=== PATIENT | female | born 2000 | race Caucasian/White ===

== ENCOUNTER 2024-03-09 17:59 | Emergency (ER) | payer OTHER, SELFPAY ==
--- NOTE | ~2024-03-09 | US_ITS ---
EXAMINATION: US ABDOMEN LIMITED CLINICAL INFORMATION: Pain right upper quadrant. COMPARISON: None available. TECHNIQUE: Real-time imaging of the right upper quadrant abdominal viscera. FINDINGS: PANCREAS: Visualized portions of the pancreas are unremarkable. Portions are obscured by overlying bowel gas. LIVER: Normal. The liver is normal in size. The liver contour is normal. Parenchymal echogenicity is normal. No focal hepatic lesion. There is no intrahepatic biliary duct dilatation seen. GALLBLADDER: gallbladder is contracted without wall thickening or pericholecystic fluid. Sonographic Bahena sign is positive. Portions of the pancreas are unremarkable. Portions are scattered by overlying bowel gas. COMMON BILE DUCT: Normal in caliber measuring 0.3 cm in diameter. RIGHT KIDNEY: Normal. No hydronephrosis. No renal calculi or focal parenchymal lesions. The kidney measures 10.0 cm in maximum dimension. FREE FLUID: None. US/US abdomen limited IMPRESSION: Gallbladder is contracted without wall thickening or pericholecystic fluid to suggest acute cholecystitis. Sonographic Bahena sign is however positive.
[2024-03-09 18:13] VITALS: BP 149/66; PULSE 73; RESP 18; TEMP 36.6; O2SAT 100; BMI 25.2
--- NOTE | 2024-03-09 18:13 | ED_ITS ---
HPI - General Adult General Chief complaint: Abdominal Pain Stated complaint: Gallbldder issue - ref by UC Time Seen by Provider: 03/10/24 03:17 Source: patient and family (Mother) Mode of arrival: ambulatory Limitations: no limitations History of Present Illness ED Provider: Dr. Du Way HPI narrative: 24-year-old female with a history of asthma and lactose intolerance who presents emergency department for evaluation of right upper quadrant pain, burping x1 month, sore throat with low-grade fever x2 days. The patient states that over the past month she has been having intermittent pain in her right upper quadrant area. She states that the pain comes on 30 minutes to several hours after she eats. She describes the pain is a stabbing pain and it does radiate to her epigastric area. It does not radiate to her back. She states that she seems to have a significant amount of burping as well which is new for her. She takes Tums which gives her some relief. She is associated nausea with no vomiting. She has had episodes of diarrhea as well. She states that over the past 2 days she has also had a sore throat with a rash on her left arm. Care clinic today and had a negative rapid strep test. She did have significant right upper quadrant tenderness and they referred her to the emergency room and to rule out biliary colic verses cholecystitis. Related Data Previous Rx's ?Medication ?Instructions ?Recorded aluminum hydrox-magnesium carb 254 10 ml PO QID PRN dyspepsia #355 mL 03/10/24 mg-237.5 mg/5 mL oral suspension (Gaviscon Extra Strength) omeprazole 20 mg capsule,delayed 20 mg PO DAILY 30 days #30 caps 03/10/24 release Allergies Allergy/AdvReac Type Severity Reaction Status Date / Time No Known Allergies Allergy Verified 03/09/24 18:15 Review of Systems 2 Review of Systems: Yes all other systems are reviewed and are negative [facility] Past Medical History [facility] Narrative: Past medical history: Asthma, lactose intolerance. Surgical history: None. Social history: She denies tobacco and alcohol use. 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 It Social History Social History Advance Directives: No Advance Directives Information Provided: No Do you have a plan to hurt others: No Plan Physical Exam ED Vital Signs: Vital Signs - 24 hr 03/09/24 18:13 03/10/24 00:19 Temperature 97.9 F 98.1 F Pulse Rate 73 70 Respiratory Rate 18 18 Blood Pressure 149/66 H 124/70 Pulse Oximetry 100 100 Oxygen Delivery Method Room Air Room Air BMI result Body Mass Index 25.2 Vital signs were normal except for an initial blood pressure of 149/66, repeat blood pressure without treatment to 124/70. Exam: General: Awake, alert in no distress Head: Normocephalic, atraumatic EENT: PERRL, Lids normal, sclera normal, conjunctiva normal, nose normal , ears normal, throat without erythema or exudates Neck: Supple, no adenopathy Lung: breath sounds symmetric, no wheezing, rales or rhonchi Chest: symmetric movement, nontender Heart: regular rate and rhythm, normal S1, S2 no murmurs or rubs Abdomen: soft, moderate right upper quadrant tenderness with a negative Bahena sign, mild to moderate epigastric tenderness, normoactive bowel sounds, no rebound Back: no vertebral tenderness, no CVAT Extremities: no deformities, moves all extremities symmetrically Neuro: Awake, alert, oriented, normal speech Psych: Pleasant, cooperative Course Course Course Narrative: RME- 24 year old female presents for evaluation of RUQ abdominal pain. Symptoms are worse after eating and worse with laying down. Plan for labs, US abdomen to evaluate gallbladder. Medical Decision Making Medical Decision Making [facility] Narrative: 24-year-old female with a history of asthma and lactose intolerance who presents emergency department for evaluation of right upper quadrant pain, burping x1 month, sore throat with low-grade fever x2 days. Patient seen you had an urgent care clinic and was noted to have right upper quadrant tenderness, is a concerned that she may have acute cholecystitis she was sent to the emergency department for evaluation. At the urgent care clinic she had a negative rapid strep test. Patient's vital signs were unremarkable. Physical examination did reveal right upper quadrant and mid epigastric tenderness otherwise was unremarkable. Differential diagnosis: ?Includes but is not limited to biliary disease, cholecystitis, biliary colic, gastritis, esophagitis, GERD Following evaluation was ordered: CBC, CMP, lipase, urinalysis, quantitative beta-hCG, ultrasound abdomen limited to right upper quadrant Course: My interpretation patient's laboratory evaluation is as follows: CBC was normal. CMP was normal. Lipase was normal. Quantitative beta-hCG was negative. Negative workup is reassuring suggesting that she does not have acute cholecystitis at this time. I did discuss the patient's negative workup. Patient's right upper quadrant ultrasound was limited since she had a contracted gallbladder therefore I did give the patient outpatient radiology order slip to schedule a fasting for at least 8-12 hour gallbladder study to evaluate for possible gallstones. I also will treat the patient for possible gastritis with Prilosec 20 mg once a day for 1 month and extra-strength Gaviscon 4 times a day as needed for epigastric/abdominal pain. The patient is moving to [place] and she will need to get a consumer affairs specialist and possibly surgeon to help her further evaluate her pain. She was given printed and verbal instructions and discharged home Admission/Observation Consideration of admission/observation: Escalation of care including admission/observation considered Lab Data MDM Lab Attestation statement: I reviewed the patient's lab results. 03/09/24 20:28 03/09/24 20:28 Labs: Lab Results 03/09/24 Range/Units 20:28 WBC 7.2 (4.8-10.8) X10*3/uL RBC 4.44 (4.20-5.50) X10*6/uL Hgb 12.9 (12.0-16.0) g/dl Hct 39.4 (37.0-47.0) % MCV 88.7 (80.0-98.0) fL MCH 29.1 (27.0-33.0) pg MCHC 32.7 (31.0-35.0) g/dl RDW 12.1 (11.0-16.0) % Plt Count 239 (160-400) X10*3/uL MPV 9.0 L (9.4-12.3) fL Immature Gran % (Auto) 0.3 (0.0-0.4) % Neut % (Auto) 47.4 (45-73) % Lymph % (Auto) 41.1 H (20-40) % [place]ade % (Auto) 6.9 (2-11) % Eos % (Auto) 3.9 (0-4) % Baso % (Auto) 0.4 (0-2) % Lymph # (Auto) 3.0 (1.2-4.9) X10*3/uL [place] # (Auto) 0.5 (0.1-1.2) X10*3/uL Eos # (Auto) 0.3 (0.0-0.4) X10*3/uL Baso # (Auto) 0.0 (0.0-0.2) X10*3/uL Abs Immat Gran (auto) 0.02 (0.00-0.03) X10*3/uL Absolute Neuts (auto) 3.4 (2.0-8.3) x10*3/uL Absolute Nucleated RBC 0.000 (0.0-0.012) X10*3/uL Nucleated RBC % (auto) 0.0 (0.0-0.2) /100WBC Sodium 141 (135-145) mmol/L Potassium 3.6 (3.3-5.1) mmol/L Chloride 108 (96-108) mmol/L Carbon Dioxide 23 (22-29) mmol/L Anion Gap 14 (12-20) BUN 9 (9-16) mg/dL Creatinine 0.76 (0.5-1.4) mg/dL Estim Creat Clear Calc 108.6 Estimated GFR > 60 Random Glucose 86 (60-115) mg/dL Calcium 9.4 (8.4-10.2) mg/dL Total Bilirubin 0.1 (0.0-1.0) mg/dL AST 19 (5-31) U/L ALT 12 (0-31) U/L Alkaline Phosphatase 68 (39-117) U/L Total Protein 7.7 (6.5-8.0) g/dL Albumin 4.7 (3.5-5.0) g/dL Lipase 26 (8-78) U/L Beta HCG, Quant < 2 mIU/mL Urine Color Yellow Urine Appearance Clear Urine pH 6.5 (5.0-9.0) Ur Specific [place] 1.020 (1.005-1.025) Urine Protein Negative (Neg-Trace) mg/dL Urine Glucose (UA) Negative (Negative) mg/dL Urine Ketones Negative (Negative) mg/dL Urine Blood Negative (Negative) Urine Nitrite Negative (Negative) Ur Leukocyte Esterase Trace H (Negative) Urine RBC 0-2 (0-2) /HPF Urine WBC 0-5 (0-5) /HPF Ur Squamous Epith Cells 3-5 (0-2) /HPF Urine Bacteria 1+ (None Seen) Hyaline Casts 0-2 (0-2) /LPF Radiology Impression Discussion of test interpretation with radiology: I have reviewed the radiologist's reading. Radiologist Impression: US abdomen limited IMPRESSION: Gallbladder is contracted without wall thickening or pericholecystic fluid to suggest acute cholecystitis. Sonographic Bahena sign is however positive. Dictated By: Alycia Gusman MD Independent Historian Clinical information obtained from an independent historian. History obtained from or confirmed by: Parent Prescription Management I considered prescription management with: Other (Potassium pump inhibitor, antacid) Discharge Plan Discharge Clinical Impression: Abdominal pain Patient Disposition: Home, Self-Care Instructions: Gastritis (ED), Biliary Colic (ED) Additional Instructions: Your blood work included a CBC, comprehensive metabolic panel and lipase. These tests were all normal which is reassuring. Your gallbladder ultrasound revealed a contracted gallbladder with no evidence of inflammation of your gallbladder or gallstones. Your normal blood work and unremarkable gallbladder suggests that you do not have inflammation of your gallbladder at this time however when your gallbladder is contracted we can miss stones in the gallbladder. I am sending you home with an outpatient radiology slit. Please call the radiology department to schedule an outpatient right upper quadrant ultrasound to evaluate your gallbladder while it is full. You will need to schedule the test for the morning in you will need to fast for at least 8-12 hours prior to getting your gallbladder study. I am going to treat you for possible inflammation of your stomach (gastritis) Take Prilosec (omeprazole) 20 mg pills, 1 pill once a day for 1 month. ?This medication shuts off your acid production and lets the inflammation in your stomach and esophagus heal. Take extra-strength Gaviscon 10 mL (2 tsp) 4 times a day as needed for abdominal pain. Follow-up with your doctor in 2 days. Please return to the emergency department if your symptoms get worse or if you develop any symptoms that are concerning to you. Prescriptions: New Gaviscon Extra Strength 254-237.5 mg/5 mL suspension 10 ml PO QID PRN (Reason: dyspepsia) Qty: 355 0RF omeprazole 20 mg capsule,delayed release(DR/EC) 20 mg PO DAILY 30 Days Qty: 30 0RF Print Language: Icelandic
[2024-03-09 20:34] LABS: MANUAL DIFF FLAG NO
[2024-03-09 20:38] LABS: Basophils Percent Auto 0.4 % (0-2); Eosinophils Absolute Auto 0.3 X10*3/uL (0.0-0.4); Eosinophils Percent Auto 3.9 % (0-4); Hematocrit 39.4 % (37.0-47.0); Hemoglobin 12.9 g/dl (12.0-16.0); Imm Gran Abs Auto 0.02 X10*3/uL (0.00-0.03); Imm Gran Pct Auto 0.3 % (0.0-0.4); Lymphocytes Percent Auto 41.1 % (20-40); Mean Corpuscular HGB Conc 32.7 g/dl (31.0-35.0); Mean Corpuscular Hemoglobin 29.1 pg (27.0-33.0); Mean Corpuscular Volume 88.7 fL (80.0-98.0); Monocytes Absolute Auto 0.5 X10*3/uL (0.1-1.2); Monocytes Percent Auto 6.9 % (2-11); Neutrophils Absolute Auto 3.4 x10*3/uL (2.0-8.3); Neutrophils Percent Auto 47.4 % (45-73); Platelet Count 239 X10*3/uL (160-400); Red Blood Count 4.44 X10*6/uL (4.20-5.50); Red Cell Distribution Width 12.1 % (11.0-16.0); White Blood Count 7.2 X10*3/uL (4.8-10.8)
[2024-03-09 20:39] LABS: Appearance Urine Clear; Color Urine Yellow; Glucose Urine UA Negative (Negative); Leukocyte Esterase Urine Trace (Negative); Nitrite Urine Negative (Negative); PH 6.5 (5.0-9.0); UMIC TRIGGER UACC YES; Urine Blood Negative (Negative); Urine Ketones Negative (Negative); Urine Protein Negative (Neg-Trace)
[2024-03-09 20:44] LABS: Bacteria Urine 1+ (None Seen); Hyaline Casts Urine 0-2 /LPF (0-2); RBC Urine 0-2 /HPF (0-2); WBC Urine 0-5 /HPF (0-5)
[2024-03-09 20:58] LABS: Alanine Aminotransferase 12 U/L (0-31); Albumin Level 4.7 g/dL (3.5-5.0); Alkaline Phosphatase 68 U/L (39-117); Anion Gap 14 (12-20); Aspartate Amino Transferase 19 U/L (5-31); Bilirubin Total 0.1 mg/dL (0.0-1.0); Blood Urea Nitrogen 9 mg/dL (9-16); Calcium 9.4 mg/dL (8.4-10.2); Carbon Dioxide 23 mmol/L (22-29); Chloride 108 mmol/L (96-108); Creatinine Clr Calc Pharmacy 108.6; Estimated Glomerular Filt Rate > 60; Glucose Random 86 mg/dL (60-115); Lipase 26 U/L (8-78); Potassium 3.6 mmol/L (3.3-5.1); Sodium 141 mmol/L (135-145); Total Protein 7.7 g/dL (6.5-8.0)
[2024-03-09 21:13] LABS: HCG Quantitative < 2 mIU/mL
[2024-03-10 00:19] VITALS: BP 124/70; PULSE 70; RESP 18; TEMP 36.7; O2SAT 100
--- OUTSIDE RECORDS SUMMARY | 2024-03-10 00:33 | XMS_ITS | Continuity of Care Document ---
Author Organization [facility] Address [address] [place] [address]- Care Team Providers Care Pediatric Acute Care Unit Nurse Name Role Phone Not on Staff, PCP Primary Care Physician Unavail able Encounter [facility] Date(s): 08/02/23 - 09/01/23 [facility] [address] [place] [address] [address] [place] [address]- Allergies, Adverse Reactions, Alerts No Known Allergies Medications acetaminophen 325 mg oral capsule 2 capsule = 650 mg, By Mouth, Every 6 hours, not to exceed 4000 mg/day, # 40 capsule, 0 Refills, Maintenance, 08/18/20 23:58:00 EST, Capsule, [id number], 168, cm, 08/18/20 21:46:00EST, Height, 68.9, kg, 08/18/20 21:46:00 EST, Dry Weight Start Date: 08/18/20 Status: Ordered BuPROpion By Mouth, 0 Refills, Maintenance, 07/26/21 14:26:00 EDT, Partial fill upon patient request if the prescription is for a schedule II opioid drug. Start Date: 07/26/21 Status: Ordered escitalopram 20 mg oral tablet TAKE 1 TABLET BY MOUTH EVERY DAY Start Date: 04/04/21 Status: Ordered ibuprofen 600 mg oral tablet 600 mg, 1, tablet, By Mouth, Every 6 hours, not to exceed 3200 mg/day with food or milk, # 20 tablet, Refills 0, Tot. Refills 0, Maintenance, 08/18/20 23:58:00 EST, Route to Pharmacy Electronically, [id number], 168, cm, 08/18/20 21:46:... Start Date: 08/18/20 Status: Ordered topiramate 50 mg oral tablet See Instructions, PRN Headache, 1/2 to 1 tablet By Mouth Daily at bedtime, # 30 capsule, 3 Refills,Maintenance, 08/03/23 8:04:00 EDT, [facility] #[id number], 168, cm, 05/11/22 15:32:00 EDT, Height Start Date: 08/03/23 Status: Ordered Social History Social History Type Response Smoking Status Never (less than 100 in lifetime) entered on: 08/18/20 Sex Patient Care team information Care Team Personnel Name: Not on Staff, PCP Position: [facility] Physician (General Medicine) Member Role: PCP Care Team Related Persons Name: LEO ELKINS Address: [address] [place], [place] [address]
--- OUTSIDE RECORDS SUMMARY | 2024-03-10 00:33 | XMS_ITS | Continuity of Care Document ---
Author Organization [facility] Address [address] [place] [address]- Care Team Providers Care Protozoology Teacher Name Role Phone Nimo Jackson Primary Care Physician [place] [facility] [place] [id number] Date(s): 05/10/21 - 05/17/21 [facility] [address] [place] [id number] Attending Physician: Ventura VALERIO, Luis Hoover Allergies, Adverse Reactions, Alerts Substance Reaction Severity Status NKA Active Medications acetaminophen 325 mg oral capsule 2 capsule = 650 mg, By Mouth, Every 6 hours, not to exceed 4000 mg/day, # 40 capsule, 0 Refills, Maintenance, 08/18/20 23:58:00 EST, Capsule, [facility], 168, cm, 08/18/20 21:46:00EST, Height, 68.9, kg, 08/18/20 21:46:00 EST, Dry Weight Start Date: 08/18/20 Status: Ordered cyclobenzaprine 5 mg oral tablet 1 tablet = 5 mg, By Mouth, Daily at bedtime, for 30 days, may increase to 2 po qhs if needed., # 30tablet, 1 Refills, Acute 07/09/21 14:41:00 EDT, 05/10/21 14:41:00 EDT, [facility] #[id number],Partial fill upon patient request if the prescripti... Start Date: 05/10/21 Stop Date: 07/09/21 Status: Ordered escitalopram 20 mg oral tablet [...] 08/18/20 21:46:... Start Date: 08/18/20 Status: Ordered Vital Signs Most recent to oldest [Reference Range]: 1 Height 168 cm (05/10/21 1:57 PM) Weight 80.4 kg (05/10/21 1:57 PM) Oxygen Saturation [94-100 %] 95 % (05/10/21 1:57 PM) Pulse Rate [55-90 bpm] 110 bpm *H* (05/10/21 1:57 PM) Body Mass Index [18.5-24.99] 28.49 *H* (05/10/21 1:57 PM) Blood Pressure [90-138/55-84 mm Hg] 127/ 65mm Hg (05/10/21 1:57 PM) Temperature [96.8-100.4 DegF] 96.9 DegF (05/10/21 1:57 PM) Blood pressure sites Arm, left (05/10/21 1:57 PM) Temperature Route Temporal (05/10/21 1:57 PM) Social History Social History Type Response Smoking Status Never (less than 100 in lifetime) entered on: 08/18/20 Sex
--- OUTSIDE RECORDS SUMMARY | 2024-03-10 00:33 | XMS_ITS | Continuity of Care Document ---
Author Organization [facility] Address [address] [place] [id number]- Care Team Providers Care Medical Technologist Blood Bank Name Role Phone Not on Staff, PCP Primary Care Physician Unavail able [place] [facility] [place] 03[place]21 [facility] [address] [place] [id number]- Allergies, Adverse Reactions, Alerts Substance Reaction Severity Status NKA Active Medications acetaminophen 325 mg oral capsule 2 capsule = 650 mg, By Mouth, Every 6 hours, not to exceed 4000 mg/day, # 40 capsule, 0 Refills, Maintenance, 08/18/20 23:58:00 EST, Capsule, [facility], 168, cm, 08/18/20 21:46:00EST, Height, 68.9, kg, 08/18/20 21:46:00 EST, Dry Weight Start Date: 08/18/20 Status: Ordered amitriptyline 10 mg oral tablet 10 mg, 1, tablet, By Mouth, Daily at bedtime, # 30 tablet, Refills 0, Tot. Refills 0, Maintenance, 02/24/21 14:58:00 EDT, Route to Pharmacy Electronically, [facility] #[id number], Partial fill upon patient request if the prescription is for a sloane... Start Date: 02/24/21 Stop Date: 03/26/21 Status: Ordered ibuprofen 600 mg oral tablet 600 mg, 1, tablet, By Mouth, Every 6 hours, not to exceed 3200 mg/day with food or milk, # 20 tablet, Refills 0, Tot. Refills 0, Maintenance, 08/18/20 23:58:00 EST, Route to Pharmacy Electronically, [id number], 168, cm, 08/18/20 21:46:... Start Date: 08/18/20 Status: Ordered riboflavin 400 mg oral capsule 1 capsule = 400 mg, By Mouth, Daily, # 30 capsule, 1 Refills, Maintenance, 01/24/21 16:52:00 EDT, Capsule, [id number], Partial fill upon patient request if the prescription is for a schedule II opioid drug., 168, cm, 08/18/20 21:46:00... Start Date: 01/24/21 Stop Date: 03/25/21 Status: Ordered Social History Social History Type Response Smoking Status Never (less than 100 in lifetime) entered on: 08/18/20 Sex
--- OUTSIDE RECORDS SUMMARY | 2024-03-10 00:33 | XMS_ITS | Continuity of Care Document ---
Author Organization [facility] Address [address] [place] [address]- Care Team Providers Care Pump Service Supervisor Name Role Phone Not on Staff, PCP Primary Care Physician Unavail able [place] [facility] [place] 08/03/[address] [id number] Attending Physician: Isela Boyd Admitting Physician: Isela Boyd Referring Physician: AdmtrIsela Allergies, Adverse Reactions, Alerts No Known Allergies [...] 21:46:... Start Date: 08/18/20 Status: Ordered topiramate 25 mg oral capsule 2 capsule = 50 mg, By Mouth, Daily at bedtime, Take 1 at night for one week then 2 capsules at night., # 60 capsule, 4 Refills, Maintenance, 01/31/22 8:42:00 EDT, Capsule, [facility] #[id number], 168, cm, 01/31/22 7:57:00 EDT, Height, 79.8, kg, 0... Start Date: 01/31/22 Status: Ordered topiramate 25 mg oral capsule, extended release 1 capsule = 25 mg, By Mouth, Daily, # 7 capsule, 0 Refills, Maintenance, 01/31/22 8:41:00 EDT, ER Capsule, [facility] #[id number], Partial fill upon patient request if the prescription is for a schedule II opioid drug., 168, cm, 01/31/22 7:57:00... Start Date: 01/31/22 Status: Ordered Social History Social History Type Response Smoking Status Never (less than 100 in lifetime) entered on: 08/18/20 Sex Patient Care team information Personnel Name: Not on Staff, PCP
--- OUTSIDE RECORDS SUMMARY | 2024-03-10 00:33 | XMS_ITS | Continuity of Care Document ---
Author Organization [facility] Address [address] [place] [address] [address] [place] [address]- Care Team Providers Care Hose Tubing Backer Name Role Phone Not on Staff, PCP Primary Care Physician Unavail able [place] [facility] [place] 09/20/22 - 10/20/22 [facility] [address] [place] [id number]- Allergies, Adverse Reactions, Alerts No Known Allergies [...] Status: Ordered topiramate 50 mg oral tablet 1 tablet = 50 mg, By Mouth, Daily at bedtime, # 30 tablet, 5 Refills, Maintenance, 09/20/22 13:29:00 EST, [facility] #[id number], 168, cm, 05/11/22 15:32:00 EDT, Height, 79.8, kg, 04/04/21 11:27:00 EDT, Dry Weight Start Date: 09/20/22 Status: Ordered Social History Social History Type Response Smoking Status Never (less than 100 in lifetime) entered on: 08/18/20 Sex Patient Care team information Care Team Personnel Name: Not on Staff, PCP Position: [facility] Physician (General Medicine) Member Role: PCP Care Team Related Persons Name: LEO ELKINS Address: [address] [place] [address]
--- OUTSIDE RECORDS SUMMARY | 2024-03-10 00:33 | XMS_ITS | Continuity of Care Document ---
Author Organization [facility] Rehabilitation Address Unknown Care Team Providers Care Rn Paralegal Name Role Phone Not on Staff, PCP Primary Care Physician Unavail able [place] [facility] [place] 07/26/21 - 08/02/21 [facility] Attending Physician: Ventura VALERIO, Luis Hoover Referring Physician: Nimo Jackson Allergies, Adverse Reactions, Alerts Substance Reaction Severity [...] oldest [Reference Range]: 1 Height 168 cm (07/26/21 2:24 PM) Weight 80.9 kg (07/26/21 2:24 PM) Oxygen Saturation [94-100 %] 99 % (07/26/21 2:24 PM) Pulse Rate [55-90 bpm] 99 bpm *H* (07/26/21 2:24 PM) Body Mass Index [18.5-24.99] 28.66 *H* (07/26/21 2:24 PM) Blood Pressure [90-138/55-84 mm Hg] 119/ 72mm Hg (07/26/21 2:24 PM) Temperature [96.8-100.4 DegF] 96.6 DegF *L* (07/26/21 2:24 PM) Blood pressure sites Arm, left (07/26/21 2:24 PM) Temperature Route Temporal (07/26/21 2:24 PM) Social History Social History Type Response Smoking Status Never (less than 100 in lifetime) entered on: 08/18/20 Sex
--- OUTSIDE RECORDS SUMMARY | 2024-03-10 00:33 | XMS_ITS | Continuity of Care Document ---
Author Organization [facility] Rehabilitation Address Unknown Care Team Providers Care Executive Assistant To General Counsel Name Role Phone Not on Staff, PCP Primary Care Physician Unavail able [place] [facility] [place]22 - 02/07/22 [facility] Attending Physician: Luis Whitehead MD Allergies, Adverse Reactions, Alerts No Known Allergies Medications acetaminophen 325 mg oral capsule 2 capsule = 650 mg, By Mouth, Every 6 hours, not to exceed 4000 mg/day, # 40 capsule, 0 Refills, Maintenance, 08/18/20 23:58:00 EST, Capsule, [id number], 168, cm, 08/18/20 21:46:00EST, Height, 68.9, kg, [...] to Pharmacy Electronically, [facility][id number], 168, cm, 08/18/20 21:46:... Start Date: 08/18/20 Status: Ordered topiramate 25 mg oral capsule 2 capsule = 50 mg, By Mouth, Daily at bedtime, Take 1 at night for one week then 2 capsules at night., # 60 capsule, 4 Refills, Maintenance, 01/31/22 8:42:00 EDT, Capsule, [facility] #[id number], 168, cm, 01/31/22 7:57:00 EDT, Height, 79.8, kg, 0... Start Date: 01/31/22 Status: Ordered topiramate 25 mg oral capsule, extended release 1 capsule = 25 mg, By Mouth, Daily, # 7 capsule, 0 Refills, Maintenance, 01/31/22 8:41:00 EDT, ER Capsule, [facility][id number], Partial fill upon patient request if the prescription is for a schedule II opioid drug., 168, cm, 01/31/22 7:57:00... Start Date: 01/31/22 Status: Ordered Vital Signs Most recent to oldest [Reference Range]: 1 Height 168 cm (01/31/22 7:57 AM) Weight 86.0 kg (01/31/22 7:57 AM) Oxygen Saturation [94-100 %] 99 % (01/31/22 7:57 AM) Pulse Rate [55-90 bpm] 97 bpm *H* (01/31/22 7:57 AM) Body Mass Index [18.5-24.99] 30.47 *>HHI* (01/31/22 7:57 AM) Blood Pressure [90-138/55-84 mm Hg] 115/ 62mm Hg (01/31/22 7:57 AM) Temperature [96.8-100.4 DegF] 98.3 DegF (01/31/22 7:57 AM) Blood pressure sites Arm, left (01/31/22 7:57 AM) Temperature Route Temporal (01/31/22 7:57 AM) Social History Social History Type Response Smoking Status Never (less than 100 in lifetime) entered on: 08/18/20 Sex
--- OUTSIDE RECORDS SUMMARY | 2024-03-10 00:33 | XMS_ITS | Continuity of Care Document ---
Author Organization [facility] Address [address] [place] [address]- Care Team Providers Care Airfield Manager Name Role Phone Not on Staff, PCP Primary Care Physician Unavail able Encounter [facility] Date(s): 01/24/21 - 01/31/21 [facility] [address] [place] [address]- Attending Physician: Ventura VALERIO, Luis Hoover Referring Physician: Not on Staff, Referring MD Allergies, Adverse Reactions, Alerts Substance Reaction Severity Status NKA Active Medications acetaminophen 325 mg oral capsule 2 capsule = 650 mg, By Mouth, Every 6 hours, not to exceed 4000 mg/day, # 40 capsule, 0 Refills, Maintenance, 08/18/20 23:58:00 EST, Capsule, [facility] #[id number], 168, cm, 08/18/20 21:46:00EST, Height, 68.9, kg, 08/18/20 21:46:00 EST, Dry Weight Start Date: 08/18/20 Status: Ordered ibuprofen 600 mg oral tablet 600 mg, 1, tablet, By Mouth, Every 6 hours, not to exceed 3200 mg/day with food or milk, # 20 tablet, Refills 0, Tot. Refills 0, Maintenance, 08/18/20 23:58:00 EST, Route to Pharmacy Electronically, [id number], 168, cm, 08/18/20 21:46:... Start Date: 08/18/20 Status: Ordered magnesium oxide 400 mg oral tablet 1 tablet = 400 mg, By Mouth, 2 times a day, for 30 days, # 60 tablet, 1 Refills, Acute 03/25/21 16:52:00 EDT, 01/24/21 16:52:00 EDT, [facility] #[id number], Partial fill upon patient request if the prescription is for a schedule II opioid drug.,... Start Date: 01/24/21 Stop Date: 03/25/21 Status: Ordered riboflavin 400 mg oral capsule 1 capsule = 400 mg, By Mouth, Daily, # 30 capsule, 1 Refills, Maintenance, 01/24/21 16:52:00 EDT, [id number], Partial fill upon patient request if the prescription is for a schedule II opioid drug., 168, cm, 08/18/20 21:46:00... Start Date: 01/24/21 Stop Date: 03/25/21 Status: Ordered Social History Social History Type Response Smoking Status Never (less than 100 in lifetime) entered on: 08/18/20 Sex
--- OUTSIDE RECORDS SUMMARY | 2024-03-10 00:33 | XMS_ITS | Continuity of Care Document ---
Author Organization [facility] Address [address] [place] [address]- Care Team Providers Care Payroll Analyst Name Role Phone Not on Staff, PCP Primary Care Physician Unavail able [place] [facility] [place](s): 03/07/21 - 08/08/[address] [address]- Discharge Disposition: A-D/C Home Attending Physician: Nimo Jackson Admitting Physician: Nimo Jackson Referring Physician: Nimo Jackson Allergies, Adverse Reactions, Alerts Substance Reaction Severity Status NKA Active Medications acetaminophen 325 mg oral capsule 2 capsule = 650 mg, By Mouth, Every 6 hours, not to exceed 4000 mg/day, # 40 capsule, 0 Refills, Maintenance, 08/18/20 23:58:00 EST, Capsule, [facility] #604, 168, cm, 08/18/20 21:46:00EST, Height, 68.9, kg, [...] 08/18/20 21:46:... Start Date: 08/18/20 Status: Ordered Social History Social History Type Response Smoking Status Never (less than 100 in lifetime) entered on: 08/18/20 Sex
--- OUTSIDE RECORDS SUMMARY | 2024-03-10 00:33 | XMS_ITS | Continuity of Care Document ---
Author Organization [facility] Address [address] [place] [address]- Care Team Providers Care Steel Pickler Name Role Phone Nimo Jackson Primary Care Physician [place] [facility] [place] 04/06/21 - 05/13/[address] [address] Attending Physician: Nimo Jackson Admitting Physician: Nimo [...] Acute 07/09/21 14:41:00 EDT, 05/10/21 14:41:00 EDT, [facility] #[id number],Partial fill upon patient request if the prescripti... [...] to Pharmacy Electronically, [facility][id number], 498, cm, 08/18/20 21:46:... Start Date: 08/18/20 Status: Ordered Social History Social History Type Response Smoking Status Never (less than 100 in lifetime) entered on: 08/18/20 Sex
--- OUTSIDE RECORDS SUMMARY | 2024-03-10 00:34 | XMS_ITS | Continuity of Care Document ---
Author Organization [facility] Address [address] [place] [address]- Care Team Providers Care University Professor Name Role Phone Not on Staff, PCP Primary Care Physician Unavail able Encounter [facility] [place] Date(s): 04/25/21 - 09/28/[address] [address]- Discharge Disposition: A-D/C Home Attending Physician: Nimo Jackson Admitting Physician: Nimo Jackson Referring Physician: Nimo Jackson Allergies, Adverse Reactions, Alerts Substance Reaction Severity Status NKA Active Medications acetaminophen 325 mg oral capsule 2 capsule = 650 mg, By Mouth, Every 6 hours, not to exceed 4000 mg/day, # 40 capsule, 0 Refills, Maintenance, 08/18/20 23:58:00 EST, Capsule, [facility] #393, 168, cm, 08/18/20 21:46:00EST, Height, 68.9, kg, [...]
--- OUTSIDE RECORDS SUMMARY | 2024-03-10 00:34 | XMS_ITS | Continuity of Care Document ---
Author Organization [facility] Address Unknown Care Team Providers Care Conference Producer Name Role Phone Not on Staff, PCP Primary Care Physician Unavail able Encounter [facility] [place] Date(s): 01/26/22 - 02/25/22 [facility] Allergies, Adverse Reactions, Alerts No Known Allergies [...] 4 Refills, Maintenance, 01/31/22 8:42:00 EDT, Capsule, [facility] #[id number], 168, cm, 01/31/22 7:57:00 EDT, Height, 79.8, kg, 0... Start Date: 01/31/22 Status: Ordered topiramate 25 mg oral capsule, extended release 1 capsule = 25 mg, By Mouth, Daily, # 7 capsule, 0 Refills, Maintenance, 01/31/22 8:41:00 EDT, ER Capsule, [facility] #[id number], Partial fill upon patient request if the prescription is for a schedule II opioid drug., 168, cm, 01/31/22 7:57:00... Start Date: 01/31/22 Status: Ordered Social History Social History Type Response Smoking Status Never (less than 100 in lifetime) entered on: 08/18/20 Sex
--- OUTSIDE RECORDS SUMMARY | 2024-03-10 00:34 | XMS_ITS | Continuity of Care Document ---
Author Organization [facility] Address Unknown Care Team Providers Care Tester Operator Name Role Phone Not on Staff, PCP Primary Care Physician Unavail able [place] [facility] [place](s): 05/11/22 - 05/18/22 [facility] Attending Physician: Luis [...] 4 Refills, Maintenance, 01/31/22 8:42:00 EDT, Capsule, [facility] #[id number], 168, cm, 01/31/22 7:57:00 EDT, Height, 79.8, kg, 0... Start Date: 01/31/22 Status: Ordered topiramate 25 mg oral capsule, extended release 1 capsule = 25 mg, By Mouth, Daily, # 7 capsule, 0 Refills, Maintenance, 01/31/22 8:41:00 EDT, ER Capsule, [facility] #[id number], Partial fill upon patient request if the prescription is for a schedule II opioid drug., 168, cm, 01/31/22 7:57:00... Start Date: 01/31/22 Status: Ordered Vital Signs Most recent to oldest [Reference Range]: 1 Height 168 cm (05/11/22 3:32 PM) Weight 79.6 kg (05/11/22 3:32 PM) Oxygen Saturation [94-100 %] 95 % (05/11/22 3:32 PM) Pulse Rate [55-90 bpm] 85 bpm (05/11/22 3:32 PM) Body Mass Index [18.5-24.99] 28.2 *H* (05/11/22 3:32 PM) Blood Pressure [90-138/55-84 mm Hg] 110/ 66mm Hg (05/11/22 3:32 PM) Blood pressure sites Arm, left (05/11/22 3:32 PM) Social History Social History Type Response Smoking Status Never (less than 100 in lifetime) entered on: 08/18/20 Sex
--- OUTSIDE RECORDS SUMMARY | 2024-03-10 00:34 | XMS_ITS | Continuity of Care Document ---
Author Organization [facility] Address Unknown Care Team Providers Care Supervisor Audit Clerks Name Role Phone Not on Staff, PCP Primary Care Physician Unavail able Encounter [facility] [place] Date(s): 09/20/21 - 09/27/21 [facility] Attending Physician: Jovanni VALERIO, Alan Burns Allergies, Adverse Reactions, Alerts Substance Reaction Severity [...]
--- OUTSIDE RECORDS SUMMARY | 2024-03-10 00:34 | XMS_ITS | Continuity of Care Document ---
Author Organization [facility] Address [address] [place] [address]- Care Team Providers Care It Security Analyst Name Role Phone Not on Staff, PCP Primary Care Physician Unavail able Encounter [facility] [place] Date(s): 11/17/21 - 03/17/[address] [address]- Attending Physician: Madison Paul MD Admitting Physician: Madison Paul MD Allergies, Adverse Reactions, Alerts No Known Allergies Medications acetaminophen 325 mg oral capsule 2 capsule = 650 mg, By Mouth, Every 6 hours, not to exceed 4000 mg/day, # 40 capsule, 0 Refills, Maintenance, 08/18/20 23:58:00 EST, Capsule, [facility]970, 168, cm, 08/18/20 21:46:00EST, Height, 68.9, kg, [...] to Pharmacy Electronically, [facility] #[id number], 168, cm, 08/18/20 21:46:... Start Date: 08/18/20 Status: Ordered topiramate 25 mg oral capsule 2 capsule = 50 mg, By Mouth, Daily at bedtime, Take 1 at night for one week then 2 capsules at night., # 60 capsule, 4 Refills, Maintenance, 01/31/22 8:42:00 EDT, Capsule, [facility] #[id number], 168, cm, 01/31/22 7:57:00 EDT, Height, 79.8, kg, 0... Start Date: 01/31/22 Status: Ordered topiramate 25 mg oral capsule, extended release 1 capsule = 25 mg, By Mouth, Daily, # 7 capsule, 0 Refills, Maintenance, 01/31/22 8:41:00 EDT, ER Capsule, [facility] #[id number], Partial fill upon patient request if the prescription is for a schedule II opioid drug., 168, cm, 01/31/22 7:57:00... Start Date: 01/31/22 Status: Ordered Social History Social History Type Response Smoking Status Never (less than 100 in lifetime) entered on: 08/18/20 Sex
--- OUTSIDE RECORDS SUMMARY | 2024-03-10 00:34 | XMS_ITS | Continuity of Care Document ---
Author Organization [facility] Address Unknown Care Team Providers Care Insurance Plan Specialist Name Role Phone Not on Staff, PCP Primary Care Physician Unavail able [place] [facility] [place](s): 09/20/21 - 10/20/21 [facility] Attending Physician: Isela Boyd Admitting Physician: Isela Boyd Referring Physician: Isela Boyd Allergies, Adverse Reactions, Alerts Substance Reaction Severity [...]
--- OUTSIDE RECORDS SUMMARY | 2024-03-10 00:34 | XMS_ITS | Continuity of Care Document ---
Author Organization [facility] Address [address] [place] [address]- Care Team Providers Care Cash Posting Specialist Name Role Phone Nimo Jackson Primary Care Physician Encounter [facility] [place] [facility] R [id number] Date(s): 04/04/21 - 04/11/21 [facility] [address] [place] [address]- Attending Physician: Jovanni VALERIO, Alan Burns Allergies, Adverse Reactions, Alerts Substance Reaction Severity Status NKA Active Medications acetaminophen 325 mg oral capsule 2 capsule = 650 mg, By Mouth, Every 6 hours, not to exceed 4000 mg/day, # 40 capsule, 0 Refills, Maintenance, 08/18/20 23:58:00 EST, Capsule, [facility]430, 168, cm, 08/18/20 21:46:00EST, Height, 68.9, kg, 08/18/20 21:46:00 EST, Dry Weight Start Date: 08/18/20 Status: Ordered escitalopram 20 mg oral tablet [...] Status: Ordered topiramate 25 mg oral capsule See Instructions, 1 capsule By Mouth daily at bedtime x 1 week then 1 po 2 times a day, # 60 capsule, 1 Refills, Maintenance, 04/04/21 12:01:00 EDT, [id number], Partial fill upon patient request if the prescription is for a schedule I... Start Date: 04/04/21 Status: Ordered Vital Signs Most recent to oldest [Reference Range]: 1 Height 168 cm (04/04/21 11:27 AM) Weight 79.8 kg (04/04/21 11:27 AM) Oxygen Saturation [94-100 %] 99 % (04/04/21 11:27 AM) Pulse Rate [55-90 bpm] 86 bpm (04/04/21 11:27 AM) Body Mass Index [18.5-24.99] 28.27 *H* (04/04/21 11:27 AM) Blood Pressure [90-138/55-84 mm Hg] 109/ 60mm Hg (04/04/21 11:27 AM) Temperature [96.8-100.4 DegF] 97.1 DegF (04/04/21 11:27 AM) Mode of Delivery (Oxygen) Room air (04/04/21 11:27 AM) Blood pressure sites Arm, left (04/04/21 11:27 AM) Temperature Route Temporal (04/04/21 11:27 AM) Dry Weight 79.8 kg (04/04/21 11:27 AM) Social History Social History Type Response Smoking Status Never (less than 100 in lifetime) entered on: 08/18/20 Sex
--- OUTSIDE RECORDS SUMMARY | 2024-03-10 00:34 | XMS_ITS | Continuity of Care Document ---
Author Organization [facility] Address [address] [place] [address]- Care Team Providers Care Treatment Coordinator Name Role Phone Not on Staff, PCP Primary Care Physician Unavail able Encounter [facility] [place] Date(s): 06/15/21 - 07/15/21 [facility] [address] [place], [place] [address] Allergies, Adverse Reactions, Alerts Substance Reaction Severity [...]
--- OUTSIDE RECORDS SUMMARY | 2024-03-10 00:34 | XMS_ITS | Continuity of Care Document ---
Author Organization [facility] Address Unknown Care Team Providers Care City Mail Carrier Name Role Phone Not on Staff, PCP Primary Care Physician Unavail able [place] [facility] [place] 06[place]09[place]21 - 06/16/21 [facility] Encounter Diagnosis Chronic neck pain(Discharge Diagnosis) - 06/09/21 Attending Physician: Beck Da Silva MD Referring Physician: Not on Staff, Referring MD [...] Acute 07/09/21 14:41:00 EDT, 05/10/21 14:41:00 EDT, [id number],Partial fill upon patient request if the prescripti... [...] 08/18/20 21:46:... Start Date: 08/18/20 Status: Ordered Problem List Diagnosis Diagnosis Type Effective Dates Health Status Cl inical Service Informant Chronic neck pain Discharge Diagnosis 06/09/21 Vital Signs Most recent to oldest [Reference Range]: 1 Height 168 cm (06/09/21 3:20 PM) Weight 82.1 kg (06/09/21 3:20 PM) Oxygen Saturation [94-100 %] 97 % (06/09/21 3:20 PM) Pulse Rate [55-90 bpm] 88 bpm (06/09/21 3:20 PM) Body Mass Index [18.5-24.99] 29.09 *H* (06/09/21 3:20 PM) Blood Pressure [90-138/55-84 mm Hg] 115/ 68mm Hg (06/09/21 3:20 PM) Temperature [96.8-100.4 DegF] 96.7 DegF *L* (06/09/21 3:20 PM) Blood pressure sites Arm, left (06/09/21 3:20 PM) Temperature Route Temporal (06/09/21 3:20 PM) Social History Social History Type Response Smoking Status Never (less than 100 in lifetime) entered on: 08/18/20 Sex
--- OUTSIDE RECORDS SUMMARY | 2024-03-10 00:34 | XMS_ITS | Continuity of Care Document ---
Author Organization [facility] Address [address] [place] [address]- Care Team Providers Care Tree Planter Name Role Phone Not on Staff, PCP Primary Care Physician Unavail able Encounter [facility] [place] Date(s): 05/11/21 - 06/10/[address] [address] Attending Physician: Isela Boyd Admitting Physician: [...] Acute 07/09/21 14:41:00 EDT, 05/10/21 14:41:00 EDT, [facility] #[id number],Partial fill upon patient request if the prescripti... [...] to Pharmacy Electronically, [facility] #[id number], 926, cm, 08/18/20 21:46:... Start Date: 08/18/20 Status: Ordered Social History Social History Type Response Smoking Status Never (less than 100 in lifetime) entered on: 08/18/20 Sex
--- OUTSIDE RECORDS SUMMARY | 2024-03-10 00:34 | XMS_ITS | Continuity of Care Document ---
Author Organization [facility] Address [address] [place] [address]- Care Team Providers Care Telegraphic Instrument Supervisor Name Role Phone Not on Staff, PCP Primary Care Physician Unavail able Encounter [facility] [place] Date(s): 05/06/22 - 06/11/[address] [address]- Attending Physician: Madison Paul MD Admitting Physician: Madison Paul MD Referring Physician: Madison Paul MD Allergies, Adverse Reactions, Alerts No Known Allergies Medications acetaminophen 325 mg oral capsule 2 capsule = 650 mg, By Mouth, Every 6 hours, not to exceed 4000 mg/day, # 40 capsule, 0 Refills, Maintenance, 08/18/20 23:58:00 EST, Capsule, [facility] #422, 168, cm, 08/18/20 21:46:00EST, Height, 68.9, kg, [...] 4 Refills, Maintenance, 01/31/22 8:42:00 EDT, Capsule, [facility] #[id number], 168, cm, 01/31/22 7:57:00 EDT, Height, 79.8, kg, 0... Start Date: 01/31/22 Status: Ordered topiramate 25 mg oral capsule, extended release 1 capsule = 25 mg, By Mouth, Daily, # 7 capsule, 0 Refills, Maintenance, 01/31/22 8:41:00 EDT, ER Capsule, [facility] #[id number], Partial fill upon patient request if the prescription is for a schedule II opioid drug., 168, cm, 01/31/22 7:57:00... Start Date: 01/31/22 Status: Ordered Social History Social History Type Response Smoking Status Never (less than 100 in lifetime) entered on: 08/18/20 Sex Care Team Personnel Name: Not on Staff, PCP
--- OUTSIDE RECORDS SUMMARY | 2024-03-10 00:34 | XMS_ITS | Continuity of Care Document ---
Author Organization [facility] Address [address] [place] [address]- Care Team Providers Care Bevel Face Stoner And Polisher Name Role Phone Nimo Jackson Primary Care Physician [phone] Encounter [facility] [place]CT R [id number] Date(s): 02/24/21 - 04/08/21 [facility] [address] [place] [address]- Attending Physician: Ventura VALERIO, Luis Hoover Allergies, [...] capsule, 1 Refills, Maintenance, 04/04/21 12:01:00 EDT, [facility] #[id number], Partial fill upon patient request if the prescription is for a schedule I... Start Date: 04/04/21 Status: Ordered Social History Social History Type Response Smoking Status Never (less than 100 in lifetime) entered on: 08/18/20 Sex
--- OUTSIDE RECORDS SUMMARY | 2024-03-10 00:34 | XMS_ITS | Continuity of Care Document ---
Author Organization [facility] Address Unknown Care Team Providers Care Web Design Instructor Name Role Phone Not on Staff, PCP Primary Care Physician Unavail able En[place] [facility] [place] Date(s): 05/10/21 - 07/16/21 [facility] Attending Physician: Luis Whitehead MD Allergies, Adverse Reactions, Alerts Substance Reaction [...]
--- OUTSIDE RECORDS SUMMARY | 2024-03-10 00:34 | XMS_ITS | Continuity of Care Document ---
Author Organization [facility] Address [address] [place] [address]- Care Team Providers Care Extension Edger Name Role Phone Not on Staff, PCP Primary Care Physician Unavail able Encounter [facility] [place] Date(s): 04/05/22 - 08/03/[address] [address] Attending Physician: Madison Paul MD Admitting Physician: [...] #[id number], 168, cm, 08/18/20 21:46:... Start Date: 11/4/20 Status: Ordered topiramate 25 mg oral capsule 2 capsule = 50 mg, By Mouth, Daily at bedtime, Take 1 at night for one week then 2 capsules at night., # 60 capsule, 4 Refills, Maintenance, 01/31/22 8:42:00 EDT, Capsule, [facility] #[id number], 168, cm, 01/31/22 7:57:00 EDT, Height, 79.8, kg, 0... Start Date: 01/31/22 Status: Ordered topiramate 25 mg oral capsule, extended release 1 capsule = 25 mg, By Mouth, Daily, # 7 capsule, 0 Refills, Maintenance, 01/31/22 8:41:00 EDT, ER Capsule, [facility] #[id number], Partial fill upon patient request if the prescription is for a schedule II opioid drug., 168, cm, 01/31/22 7:57:00... Start Date: 01/31/22 Status: Ordered Social History Social History Type Response Smoking Status Never (less than 100 in lifetime) entered on: 08/18/20 Sex Patient Care team information Personnel Name: Not on Staff, PCP
--- OUTSIDE RECORDS SUMMARY | 2024-03-10 00:34 | XMS_ITS | Continuity of Care Document ---
Author Organization [facility] Address [address] [place] [address]- Care Team Providers Care Registered Physical Therapist Name Role Phone Not on Staff, PCP Primary Care Physician Unavail able Encounter [facility] [place] Date(s): 06/28/22 - 08/03/[address] [address] Attending Physician: Madison Paul MD Admitting Physician: Madison Paul MD Allergies, Adverse Reactions, Alerts No Known Allergies Medications acetaminophen 325 mg oral capsule 2 capsule = 650 mg, By Mouth, Every 6 hours, not to exceed 4000 mg/day, # 40 capsule, 0 Refills, Maintenance, 08/18/20 23:58:00 EST, Capsule, [facility] #862, 168, cm, 08/18/20 21:46:00EST, Height, 68.9, kg, [...] 4 Refills, Maintenance, 01/31/22 8:42:00 EDT, Capsule, [facility] #[id number], 168, cm, 01/31/22 7:57:00 EDT, Height, 79.8, kg, 0... Start Date: 01/31/22 Status: Ordered topiramate 25 mg oral capsule, extended release 1 capsule = 25 mg, By Mouth, Daily, # 7 capsule, 0 Refills, Maintenance, 01/31/22 8:41:00 EDT, ER Capsule, [facility] #[id number], Partial fill upon patient request if the prescription is for a schedule II opioid drug., 168, cm, 01/31/22 7:57:00... Start Date: 01/31/22 Status: Ordered Social History Social History Type Response Smoking Status Never (less than 100 in lifetime) entered on: 08/18/20 Sex Patient Care team information Personnel Name: Not on Staff, PCP
--- OUTSIDE RECORDS SUMMARY | 2024-03-10 00:34 | XMS_ITS | Continuity of Care Document ---
Author Organization [facility] Address [address] [place] [address]- Care Team Providers Care Operations Consultant Name Role Phone Not on Staff, PCP Primary Care Physician Unavail able [place] [facility] [place]/24[place] - 03/03/21 [facility] [address] [place] [address]- Attending Physician: Luis Whitehead MD Allergies, Adverse [...] 02/24/21 14:58:00 EDT, Route to Pharmacy Electronically, [facility] #[id number], Partial fill upon patient request if the [...] Acute 03/25/21 16:52:00 EDT, 01/24/21 16:52:00 EDT, [facility] #[id number], Partial fill upon patient request if the prescription is for a schedule II opioid drug.,... Start Date: 01/24/21 Stop Date: 03/25/21 Status: Ordered riboflavin 400 mg oral capsule 1 capsule = 400 mg, By Mouth, Daily, # 30 capsule, 1 Refills, Maintenance, 01/24/21 16:52:00 EDT, Capsule, [facility] #[id number], Partial fill upon patient request if the prescription is for a schedule II opioid drug., 168, cm, 08/18/20 21:46:00... Start Date: 01/24/21 Stop Date: 03/25/21 Status: Ordered Social History Social History Type Response Smoking Status Never (less than 100 in lifetime) entered on: 08/18/20 Sex
--- OUTSIDE RECORDS SUMMARY | 2024-03-10 00:34 | XMS_ITS | Continuity of Care Document ---
Author Organization [facility] Address [address] [place] [id number]- Care Team Providers Care Blanket Cutting Machine Operator Name Role Phone Not on Staff, PCP Primary Care Physician Unavail able Encounter [facility] [place] Date(s): 06/08/21 - 07/08/[address] [address] Attending Physician: Isela Boyd Admitting Physician: [...] Acute 07/09/21 14:41:00 EDT, 05/10/21 14:41:00 EDT, [facility] #[id number],Partial fill upon patient request if the prescripti... [...] to Pharmacy Electronically, [facility] #[id number], 972, cm, 08/18/20 21:46:... Start Date: 08/18/20 Status: Ordered Social History Social History Type Response Smoking Status Never (less than 100 in lifetime) entered on: 08/18/20 Sex
--- OUTSIDE RECORDS SUMMARY | 2024-03-10 00:34 | XMS_ITS | Continuity of Care Document ---
Author Organization [facility] Address [address] [place] [id number]- Care Team Providers Care Bank Worker Name Role Phone Not on Staff, PCP Primary Care Physician Unavail able [place]counter [facility] [place](s): 01/04/21 - 02/03/21 [facility] [address] [place] [id number]- Allergies, Adverse Reactions, Alerts Substance Reaction Severity [...] Acute 03/25/21 16:52:00 EDT, 01/24/21 16:52:00 EDT, [facility] #[id number], Partial fill upon patient request if the prescription is for a schedule II opioid drug.,... Start Date: 01/24/21 Stop Date: 03/25/21 Status: Ordered riboflavin 400 mg oral capsule 1 capsule = 400 mg, By Mouth, Daily, # 30 capsule, 1 Refills, Maintenance, 01/24/21 16:52:00 EDT, Capsule, [facility] #[id number], Partial fill upon patient request if the prescription is for a schedule II opioid drug., 168, cm, 08/18/20 21:46:00... Start Date: 01/24/21 Stop Date: 03/25/21 Status: Ordered Social History Social History Type Response Smoking Status Never (less than 100 in lifetime) entered on: 08/18/20 Sex
--- OUTSIDE RECORDS SUMMARY | 2024-03-10 00:34 | XMS_ITS | Continuity of Care Document ---
Author Organization [facility] Address [address] [place] [id number]- Care Team Providers Care Bankruptcy Paralegal Name Role Phone Not on Staff, PCP Primary Care Physician Unavail able [place] [facility] [place]/22 [facility] [address] [place] [id number]- Attending Physician: Isela Boyd Admitting Physician: Isela [...] 4 Refills, Maintenance, 01/31/22 8:42:00 EDT, Capsule, [facility] #[id number], 168, cm, 01/31/22 7:57:00 EDT, Height, 79.8, kg, 0... Start Date: 01/31/22 Status: Ordered topiramate 25 mg oral capsule, extended release 1 capsule = 25 mg, By Mouth, Daily, # 7 capsule, 0 Refills, Maintenance, 01/31/22 8:41:00 EDT, ER Capsule, [facility] #[id number], Partial fill upon patient request if the prescription is for a schedule II opioid drug., 168, cm, 01/31/22 7:57:00... Start Date: 01/31/22 Status: Ordered Social History Social History Type Response Smoking Status Never (less than 100 in lifetime) entered on: 08/18/20 Sex Care Team Personnel Name: Not on Staff, PCP
[2024-03-10 04:05] VITALS: BP 118/72; PULSE 82; RESP 15; TEMP 36.8; O2SAT 99
[2024-03-10 04:07] VITALS: BP 118/72; PULSE 82; RESP 15; TEMP 36.8; O2SAT 99
== END 2024-03-10 04:08 | disposition home or self-care (01) ==
PROVIDERS: Physician Assistant; Emergency Provider Emergency Medicine Emergency Medical Services
DX: R10.11 Right upper quadrant pain (principal); J45.909 Unspecified asthma, uncomplicated
CPT/HCPCS: 36415; 76705; 80053; 81001; 83690; 84702; 85025; 99284